=== PATIENT | male | born 1970 | race Caucasian/White ===

== ENCOUNTER → 2019-04-04 | Outpatient (CLI) | payer OTHER, SELFPAY | PROVIDERS: Family Provider Family Medicine; Visit Provider Family Medicine | DX: G47.33 Obstructive sleep apnea (adult) (pediatric) (principal); G47.10 Hypersomnia, unspecified ==

== ENCOUNTER 2022-03-03 10:09 | Emergency (ER) | payer BC, SELFPAY ==
[2022-03-03 10:24] VITALS: PULSE 52; RESP 14; TEMP 36.7; O2SAT 99; BMI 40.0
[2022-03-03 11:38] LABS: Basophils % 0.4 %; Eosinophils # 0.1 10^3/uL (0.0-0.8); Eosinophils % 1.2 %; Hematocrit 47.7 % (42.0-52.0); Hemoglobin 15.5 g/dL (11.7-16.6); Lymphocytes % 32.6 %; Mean Corpuscular HGB Conc 32.5 g/dL (30.0-36.0); Mean Corpuscular Hemoglobin 28.7 pg (28.0-34.0); Mean Corpuscular Volume 88.2 fl (80-94); Mean Platelet Volume 9.7 fL (7.4-10.4); Monocytes % 10.4 %; Neutrophils # 5.02 10^3/uL (1.8-7.7); Neutrophils % 54.7 %; Nucleated Red Blood Cells % 0 %; Platelet Count 319 10^3/cmm (130-400); Red Blood Count 5.41 10^6/uL (4.1-5.3); Red Cell Distribution Width 13.8 % (12.1-15.1); White Blood Count 9.2 10^3/uL (4.0-10.0)
--- NOTE | 2022-03-03 11:52 | XR_ITS ---
WS: [id number] PORTABLE CHEST HISTORY: chest pain COMPARISON: 10/09/2013 Lungs are clear and well expanded. No pleural effusion or pneumothorax. Cardiac size: Normal. Mediastinum/Aorta: Normal mediastinum. No osseous abnormality seen. XR/XR chest 1V portable [id number] IMPRESSION: Unremarkable portable chest.
--- NOTE | 2022-03-03 11:52 | ED_ITS ---
HPI - Chest Pain General: Chief Complaint: Chest Pain Stated Complaint: Chesst pains Time Seen by Provider: 03/03/22 11:19 Source: patient Mode of arrival: ambulatory History of Present Illness: 51-year-old male presents emergency room complaining of chest discomfort that began about 3 days ago burning sensation. He gets mildly short of breath but that he has not noticed anything that seems to worsen or improve his symptoms he denies any fever sweats chills cough. No productive cough. No diarrhea no vomiting. Has a history of hypertension he does take metoprolol and atorvastatin he does not take any aspirin. MD complaint: chest pain Onset (ago): day(s) (3) Timing of current episode: episodic Onset: during rest Pain location: left chest Pain radiation: none Severity: mild Quality: tightness, aching and heaviness Relieving factors: nothing Exacerbating factors: nothing Context: recent illness Associated symptoms: Deny abdominal pain, dyspnea, fever(s), nausea, palpitations or vomiting Review of Systems Const: Denies: fever(s), chills, body aches, change in appetite, fatigue or malaise ENMT: Denies: throat pain, ear or mastoid pain, nasal discharge or nasal congestion Card: Denies: chest pain, palpitations, irregular heart rhythm, edema, dyspnea on exertion or orthopnea Resp: Denies: dyspnea, productive cough or non-productive cough GI: Denies: abdominal pain, nausea, vomiting, hematemesis, coffee ground emesis, diarrhea, constipation, bloating, hematochezia or melena : Denies: flank pain, dysuria, urinary frequency or urinary urgency Musc: Denies: neck pain or back pain Skin/Breast: Denies: rash or pruritus PFSH ED PFSH: Medical History (Updated 03/03/22 @ 14:58 by Inocencio Fraga DO) Hyperlipidemia Hypertension Social History (Updated 03/03/22 @ 12:05 by Inocencio Fraga DO) Smoking and tobacco status: never smoked Alcohol intake: current Physical Exam Const: GENERAL APPEARANCE: cooperative and comfortable ORIENTATION/CONSCIOUSNESS: Yes awake, Yes oriented to person, Yes oriented to place and Yes oriented to time HENMT: COMMON NORMALS: normocephalic, atraumatic and hearing grossly normal bilaterally HEAD & SCALP: normocephalic and atraumatic Resp: COMMON NORMALS: normal respiratory effort, No retractions, No use of accessory muscles and clear to auscultation bilaterally AUSCULTATION: clear to auscultation bilaterally Cardio: COMMON NORMALS: regular rate, regular rhythm and No murmurs present (Cardio) RATE: regular rate RHYTHM: regular rhythm GI: COMMON NORMALS: Soft to palpation and No hepatosplenomegaly present AUSCULTATION: Yes normoactive bowel sounds PALPATION: Yes Soft to palpation, No Tenderness to palpation present (GI), No Guarding due to palpation present (GI) and Yes No hepatosplenomegaly present Extremity: COMMON NORMALS: normal to inspection, capillary refill normal, no clubbing, cyanosis or edema, no calf tenderness and no pedal edema Neuro: SENSORIUM/ORIENTATION: Yes oriented to person, Yes oriented to place and Yes oriented to time Skin: COMMON NORMALS: no rashes or lesions noted GENERAL SKIN EXAM: no rashes or lesions noted Course Vital Signs: Vital signs: Vital Signs Temperature 98.1 F 03/03/22 10:24 Pulse Rate 54 L 03/03/22 12:20 Respiratory Rate 16 03/03/22 12:20 Blood Pressure 157/87 03/03/22 12:20 Pulse Oximetry 95 03/03/22 12:20 Oxygen Delivery Me thod 03/03/22 12:20 MDM - Chest Pain Medical Decision Making Atypical chest pain EKG and troponins are normal. It sounds more GI in nature organ to go ahead and discharge the patient home start him on baby aspirin daily as well as Protonix. He currently is taking metoprolol should continue with that. I have him follow-up with his primary care doctor within the next week. Medical Records I reviewed the patient's medical records. Lab Data I reviewed the patient's lab results. 03/03/22 11:32 03/03/22 11:32 Radiology Impressions Chest X-Ray 03/03/22 11:52 IMPRESSION: Unremarkable portable chest. Laboratory Results WBC 9.2 10^3/uL (4.0-10.0) 03/03/22 11:32 RBC 5.41 10^6/uL (4.1-5.3) H 03/03/22 11:32 Hgb 15.5 g/dL (11.7-16.6) 03/03/22 11:32 Hct 47.7 % (42.0-52.0) 03/03/22 11:32 MCV 88.2 fl (80-94) 03/03/22 11:32 MCH 28.7 pg (28.0-34.0) 03/03/22 11:32 MCHC 32.5 g/dL (30.0-36.0) 03/03/22 11:32 RDW 13.8 % (12.1-15.1) 03/03/22 11:32 Plt Count 319 10^3/cmm (130-400) 03/03/22 11:32 MPV 9.7 fL (7.4-10.4) 03/03/22 11:32 Neut % (Auto) 54.7 % 03/03/22 11:32 Lymph % (Auto) 32.6 % 03/03/22 11:32 [place] % (Auto) 10.4 % 03/03/22 11:32 Eos % (Auto) 1.2 % 03/03/22 11:32 Baso % (Auto) 0.4 % 03/03/22 11:32 Neut # (Auto) 5.02 10^3/uL (1.8-7.7) 03/03/22 11:32 Lymph # (Auto) 3.0 10^3/uL (0.8-4.8) 03/03/22 11:32 [place] # (Auto) 1.0 10^3/uL (0.2-0.9) H 03/03/22 11:32 Eos # (Auto) 0.1 10^3/uL (0.0-0.8) 03/03/22 11:32 Baso # (Auto) 0.0 10^3/uL (0.0-0.1) 03/03/22 11:32 Nucleated RBC % (auto) 0 % 03/03/22 11:32 Nucleated RBCs # 0.0 /100WBC 03/03/22 11:32 Sodium 139 mmol/L (136-145) 03/03/22 11:32 Potassium 4.9 mmol/L (3.5-5.1) 03/03/22 11:32 Chloride 107 mmol/L (98-107) 03/03/22 11:32 Carbon Dioxide 24 mmol/L (22-29) 03/03/22 11:32 Anion Gap 12.9 (5-19) 03/03/22 11:32 BUN 14 mg/dL (6-20) 03/03/22 11:32 Creatinine 0.7 mg/dL (0.7-1.2) 03/03/22 11:32 GFR Calculation 118.9 mL/min (90-130) 03/03/22 11:32 Glucose 94 mg/dL (65-115) 03/03/22 11:32 Calculated Osmolality 288 mOsm/kg (285-295) 03/03/22 11:32 Calcium 8.8 mg/dL (8.5-10.5) 03/03/22 11:32 Total Bilirubin 0.2 mg/dL (0.15-1.2) 03/03/22 11:32 AST 22 U/L (0-40) 03/03/22 11:32 ALT 36 U/L (0-41) 03/03/22 11:32 Alkaline Phosphatase 81 U/L (40-130) 03/03/22 11:32 Troponin T Baseline 9 ng/L (0-15) 03/03/22 11:32 Troponin T 120 Minute 6.14 ng/L (0-15) 03/03/22 13:35 Delta Troponin T -2.86 ABS# (0-10) L 03/03/22 13:35 Total Protein 7.0 g/dL (6.6-8.7) 03/03/22 11:32 Albumin 3.9 g/dL (3.5-5.2) 03/03/22 11:32 Globulin 3.1 g/dL (1.3-4.6) 03/03/22 11:32 Discharge Plan Discharge Patient Disposition: Home Clinical Impression: Atypical chest pain Condition: Stable Prescriptions: New aspirin 81 mg tablet,delayed release (DR/EC) 81 mg PO DAILY Qty: 30 0RF Protonix 40 mg tablet,delayed release (DR/EC) 40 mg PO DAILY Qty: 30 0RF No Action atorvastatin 20 mg tablet 20 mg PO BEDTIME terbinafine HCl 250 mg tablet 250 mg PO DAILY metoprolol tartrate 50 mg tablet 50 mg PO DAILY amlodipine-benazepril 10-40 mg capsule 1 cap PO DAILY Discharge Orders: Discharge ED (Routine); Ordered 03/03/22 Ordered By: Inocencio Fraga Discharge Diet: Usual diet Discharge Activity: Increase activity as tolerated Patient Instructions: Opioid Safety, Pain Management Activity Restrictions/Additional Instructions: You were seen today for chest pain your EKGs and cardiac enzymes were negative. Like you to start on a baby aspirin daily continue your other medications as before also started on medication for your stomach. apartment maintenance manager will make arrangements for you to have a cardiac stress test as an outpatient if you have recurrence of symptoms or do not improve return to the emergency room Coding Level of Care Code ED Microgrinder Operator for Brian Fwd Exam Detailed
[2022-03-03 11:59] LABS: Alanine Aminotransferase 36 U/L (0-41); Albumin Level 3.9 g/dL (3.5-5.2); Alkaline Phosphatase 81 U/L (40-130); Anion Gap 12.9 (5-19); Aspartate Amino Transferase 22 U/L (0-40); Blood Urea Nitrogen 14 mg/dL (6-20); Calcium 8.8 mg/dL (8.5-10.5); Carbon Dioxide 24 mmol/L (22-29); Chloride 107 mmol/L (98-107); Globulin 3.1 g/dL (1.3-4.6); Glomerular Filtration Rate 118.9 mL/min (90-130); Glucose 94 mg/dL (65-115); Osmolality Calculated 288 mOsm/kg (285-295); Potassium 4.9 mmol/L (3.5-5.1); Sodium 139 mmol/L (136-145); Total Bilirubin 0.2 mg/dL (0.15-1.2)
--- NOTE | 2022-03-03 11:59 | ECG_ITS ---
[facility] Test Date: 2022-03-03 Pat Name: Arden Mcdonald Department: Room: Gender: Male Loan Reviewer: : 1970 Requested By: Inocencio Cohn Order Number: [id number] Mert MD: Kameron Meyer M.D. Measurements Intervals [place] Rate: 46 P: 11 MT: 185 QRS: 6 QRSD: 97 T: 37 QT: 406 QTc: 358 Interpretive Statements SINUS BRADYCARDIA POSSIBLE ANTERIOR MYOCARDIAL INFARCTION , OF INDETERMINATE AGE [30 ms Q WAVE IN V3/V4, OR R < 0.2 mV IN V4] No previous ECG available for comparison Electronically Signed On 03-04-2022 11:06:34 COURTESY VAN DRIVER by Kameron Meyer M.D. [email or web address] system [email or web address]/store/NU/[id number] f
[2022-03-03] MEDS: aspirin 81 mg Chew Tablet 324 MG PO (12:01)
[2022-03-03 12:20] VITALS: BP 157/87; PULSE 54; RESP 16; O2SAT 95
[2022-03-03 12:30] LABS: Troponin(5th) Baseline 9 ng/L (0-15)
[2022-03-03 14:04] LABS: Troponin 5 2HR 6.14 ng/L (0-15)
--- NOTE | 2022-03-03 14:05 | ECG_ITS ---
[facility] Test Date: 2022-03-03 Pat Name: Arden Mcdonald Department: Room: Gender: Male Teacher Of The Visually Impaired: : 1970 Requested By: Inocencio Cohn Order Number: [id number] Mert MD: Kameron Meyer M.D. Measurements Intervals [place] Rate: 49 P: 15 MA: 206 QRS: 11 QRSD: 104 T: 43 QT: 421 QTc: 381 Interpretive Statements SINUS BRADYCARDIA Compared to ECG 03/03/2022 10:28:19 Myocardial infarct finding no longer present Electronically Signed On 03-04-2022 11:10:26 MICROBIOLOGY MANAGER by Kameron Meyer M.D. [email or web address] memorial [email or web address]/store/OM/[id number]
[2022-03-03 14:17] LABS: Troponin 5 2HR Delta -2.86 ABS# (0-10)
--- NOTE | 2022-03-08 08:23 | DCPLANNER ---
Addendum entered by Little Boyd 06/01/22 13:34: Patient had an outpatient stress test scheduled - patient did attend appointment. Addendum entered by Little Boyd 04/18/22 12:23: Patient has a stress test scheduled for Sunday, May 01, 2022 at 8:15. Centralized scheduling will call patient with appointment information. Addendum entered by Little Boyd 03/09/22 09:10: Patient returned caser phone call, stated that his primary care physician is Dr. Austin at [facility], and would like the stress test ordered. hedis manager faxed signed order to centralized who will call patient with appointment information. hedis manager also sent patients primary care physician notification that a stress test was ordered out of the ER. Original Note: hedis manager had message to schedule an outpatient stress test for patient. Theres is not a primary care physician listed on patients chart. hedis manager called phone number [phone], unable to speak with patient at this time, a voicemail was left for patient to return caser phone call.
== END 2022-03-03 15:00 | disposition home or self-care (01) ==
PROVIDERS: Physician Assistant; Emergency Provider Family Medicine
DX: R07.89 Other chest pain (principal); I10 Essential (primary) hypertension; E78.5 Hyperlipidemia, unspecified
CPT/HCPCS: 36415; 71045; 80053; 84484; 85025; 93005; 99285

== ENCOUNTER 2022-05-01 07:43 | Outpatient (CLI) | payer BC, SELFPAY ==
[2022-05-01 08:13] VITALS: BMI 39.0
--- NOTE | 2022-05-01 08:13 | ECG_ITS ---
[facility] Test Date: 2022-05-01 Pat Name: Arden Mcdonald Department: Room: Gender: Male Planner: : 1970 Requested By: Mikel Soto Order Number: [id number] Painting MD: Jia Sol M.D. Interpretive Statements NAME OF STUDY: EXERCISE SESTAMIBI STRESS TEST INDICATION: Chest Pain Baseline blood pressure of 181/105 mm Hg, heart rate of 76 beats per minute and oxygen saturation of 98%. EKG showed sinus rhythm, normal axis and non specific T wave inversion. The patient exercised for 5 minutes 45 seconds on a [standard Jesse protocol]. Patient attained a maximum heart rate of 157 beats per minute( 92 % of the maximum predicted heart rate) with a blood pressure at the peak exercise of 231/81 mm Hg and oxygen saturation of 97%. The EKG at the peak exercise revealed sinus tachycardia with no significant ST-T wave changes. Patient did not have any chest pain or any significant arrhythmis with the exercise.??? During the recovery phase, there were no new changes. ??? Blood pressure at the end of the recovery phase was 146/85 mm Hg with a heart rate of 101 beats per minute and oxygen saturation of 96%. ??? CONCLUSION: 1. Normal EKG response to treadmill exercise. 2. No exercise-induced chest pain or cardiac arrhythmia. 3. Good exercise tolerance, attained a maximum of 7 METs. 4. Baseline hypertension with hypertensive response to exercise. 5. Perfusion scan will be documented separately. Electronically Signed On 05-10-2022 2:16:12 PUBLICITY WRITER by Jia Sol M.D. [id number]
--- NOTE | 2022-05-01 08:14 | NMCV_ITS ---
NM vickie perf SPECT r/s* [id number] Arden Mcdonald Age: 51 Gender: M : 1970 Exam Date: 05/01/2022 08:14 Ordering Phys: Mikel Austin MD Technologist: ADAMS Franks Exam Location: [facility] Indications: SHORTNESS OF BREATH STRESS TEST Please see separate stress test report in [facility] for full findings IMAGE PROTOCOL Rest/Stress 1 Exercise Day Radiopharmaceutical Dose (mCi) Administration Site Administered by Rest: Tc-99m 10.4 IV ADAMS Moscoso Sestamibi Stress:Tc-99m 32.6 IV ADAMS Moscoso Sestamibi Rest: 01-May-2022 60 Discovery 630 Stress: 01-May-2022 30 Discovery 630 Radiopharmaceutical was injected at 86 % maximum heart rate. Images obtained in supine and prone position. SPECT RESULTS Technical Quality: Excellent Raw Data Analysis: Normal Image Corrections: No attenuation or motion correction applied Summed Stress Score: 1 Summed Rest Score: 4 Summed Difference Score: 0 PERFUSION FINDINGS Small sized perfusion abnormality of mild severity of basal to nid inferolateral and apical lateral bullock on rest images with improved tracer uptake in stress images. This is suggestive of attenuation artifact. FUNCTIONAL RESULTS (calculated via Gated SPECT) Stress Image LV EF (%): 73 Stress EDV (mL):147 TID: 0.74 Stress ESV (mL):39 FUNCTIONAL FINDINGS: The left ventricle is normal in size. Transient Ischemia Dilatation of 0.74. The left ventricular ejection fraction is normal with a value of 73%. There is normal left ventricular systolic function. IMPRESSIONS 1. Myocardial perfusion imaging is normal. Attenuation artifact noted in lateral wall. 2. Overall left ventricular systolic function is normal without regional wall motion abnormalities, LVEF=73%. 3. EKG portion of the study will be reported separately. 4. Scan indicates low risk for cardiac events. Jia Sol MD (Electronically Signed) Final Date: 05 May 2022 07:49 S
[2022-05-01 10:58] VITALS: BP 146/85; PULSE 100
== END 2022-05-01 07:44 | disposition home or self-care (01) ==
PROVIDERS: PCP Family Medicine; Visit Provider Family Medicine
DX: R07.89 Other chest pain (principal)
CPT/HCPCS: 36415; 78452; 93017; A9500